=== PATIENT | male | born 2000 | race Caucasian/White ===

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

== ENCOUNTER → 2020-02-08 | Outpatient (CLI) | payer OTHER ==
[~2020-02-08] MED LIST changes: -OMEP40CA2 PO; +OMEP40CA97 PO
--- NOTE | 2020-03-01 15:37 | REP ---
RIGHT ANKLE SERIES CLINICAL: Pain with recent trauma. TECHNIQUE: AP, lateral, and bilateral oblique views of the right ankle. FINDINGS: Mild soft tissue swelling. No acute fracture or dislocation. No subcutaneous emphysema or foreign body. IMPRESSION: Swelling. No acute fracture or dislocation. MTDD
== END ==
LOC: M WUC 14:43
PROVIDERS: ATTEND Nurse Practitioner Family
DX: M25.571 Pain in right ankle and joints of right foot (principal)

== ENCOUNTER 2020-12-16 15:23 | Emergency (ER) | payer OTHER ==
[~2020-12-16] VITALS: Ht 182.9 cm; Wt 54.9 kg
[~2020-12-16 15:23] MED LIST changes: +OMEP40CA4 PO; -OMEP40CA97 PO
--- NOTE | 2020-12-16 19:26 | REP ---
INDICATION: chest pain. COMPARISON: Comparison chest x-ray October 19, 2017. TECHNIQUE: Two views.. FINDINGS: The lungs are well inflated and free of infiltrate. The pleural angles are sharp. The heart size is normal. Pulmonary vasculature is not increased. No significant bony abnormality is seen. IMPRESSION: Negative chest x-ray. <Electronically signed by Nigel Andrade > 12/16/201921
[2020-12-16 19:50] LABS: BASO % 0.5 % (0.0-1.0); EOS % 0.5 % (0.0-3.0); HEMATOCRIT 43.9 % (42.0-52.0); HEMOGLOBIN 14.7 g/dl (13.5-17.5); LYMPH # 1.6 10^3/uL (1.5-5.0); LYMPH % 23.9 % (24.0-44.0); MEAN CORPUSCULAR HEMOGLOBIN 27.6 pg (27.0-33.0); MEAN CORPUSCULAR HGB CONC 33.5 g/dl (32.0-36.5); MEAN CORPUSCULAR VOLUME 82.5 fl (80.0-96.0); MONO # 0.5 10^3/uL (0.0-0.8); MONO % 7.6 % (2.0-8.0); NEUTROPHILS # 4.4 10^3/uL (1.5-8.5); NEUTROPHILS % 67.2 % (36.0-66.0); PLATELET COUNT, AUTOMATED 235 10^3/uL (150-450); RED BLOOD COUNT 5.32 10^6/uL (4.30-6.10); WHITE BLOOD COUNT 6.5 10^3/uL (4.0-10.0)
[2020-12-16] MEDS ORDERED: ONDANSETRON 4MG/2ML VIAL IV ONE (20:05)
[2020-12-16] MEDS ORDERED: NS 1,000 ML IV ONE (20:05)
[2020-12-16 20:11] LABS: AMPHETAMINES LEVEL URINE NEGATIVE (NEGATIVE); BARBITURATES URINE NEGATIVE (NEGATIVE); BENZODIAZEPINES URINE NEGATIVE (NEGATIVE); CANNABINOIDS URINE NEGATIVE (NEGATIVE); COCAINE METABOLITE URINE NEGATIVE (NEGATIVE); METHADONE URINE NEGATIVE (NEGATIVE); OPIATES URINE NEGATIVE (NEGATIVE); PHENCYCLIDINE URINE NEGATIVE (NEGATIVE)
[2020-12-16 20:17] LABS: ALBUMIN 4.7 GM/DL (3.2-5.2); ALT/SGPT 22 U/L (12-78); BILIRUBIN,DIRECT 0.3 MG/DL (0.0-0.2); BILIRUBIN,TOTAL 1.2 MG/DL (0.2-1.0); CK-MB VALUE MASS < 1.0 NG/ML (<3.6); CPK CREATINE PHOSPHOKINASE 82 U/L (39-308); FREE T4 1.33 NG/DL (0.76-1.46); LIPASE 152 U/L (73-393); MB/CK RELATIVE INDEX 1.22 (< OR =4); THYROID STIMULATING HORMONE 0.743 uIU/ML (0.358-3.740); TOTAL PROTEIN 8.4 GM/DL (6.4-8.2); TROPONIN I < 0.02 NG/ML (< 0.10)
[2020-12-16] MEDS ORDERED: ONDA4TAB6 PO (21:12)
--- NOTE | 2020-12-16 21:42 | REPVR ---
PROCEDURE INFORMATION: Exam: US Abdomen, Limited; Right Upper Quadrant Exam date and time: 12/16/2020 8:35 PM Age: 20 years old Clinical indication: Abdominal pain; Generalized; Additional info: Upper abd pain, n/v/d TECHNIQUE: Imaging protocol: US abdomen. Real time ultrasound with image documentation. Limited exam focused on the right upper quadrant. COMPARISON: US ABDOMEN LIMITED 05/10/2017 11:02 AM FINDINGS: Liver: Normal. No masses. Gallbladder: There is no evidence of gallstones. Common bile duct: Common bile duct is normal in size measuring 4 mm. There is uniform echogenicity of the liver the gallbladder is fluid filled and there is no evidence thickening of the gallbladder wall. Pancreas: The pancreas is not enlarged. Right kidney: The right kidney measures 10 cm in length and there is no hydronephrosis. Negative Holland sign. IMPRESSION: No evidence of gallstones and no biliary dilatation. Electronically signed by: Gómez Dunbar On 12/16/2020 21:41:54 PM
[2020-12-16 22:12] VITALS: BP 114/63
--- NOTE | 2020-12-17 05:38 | ECGEPIP ---
[facility] - ED Test Date: 2020-12-16 Pat Name: OFELIA MONTENEGRO Department: Room: - Gender: Male Shank Taper: [place] : 2000 Requested By: KAUSHIK Coffey PA-C Order Number: [id number] Reading MD: Giorgio Og Measurements Intervals [place] Rate: 51 P: 55 CA: 150 QRS: 188 QRSD: 92 T: 55 QT: 416 QTc: 383 Interpretive Statements Sinus bradycardia Right superior axis deviation Low QRS complex voltage in the limb leads Comparison tracing not on file Electronically Signed on 12-17-2020 5:38:16 EDT by Giorgio Og
== END 2020-12-16 22:12 | disposition home or self-care (01) ==
LOC: M ED 15:23
DX: R10.10 Upper abdominal pain, unspecified (principal); R07.89 Other chest pain; R01.1 Cardiac murmur, unspecified; R11.2 Nausea with vomiting, unspecified; R19.7 Diarrhea, unspecified; R00.1 Bradycardia, unspecified; Q53.9 Undescended testicle, unspecified; F17.220 Nicotine dependence, chewing tobacco, uncomplicated; Z88.8 Allergy status to other drugs, medicaments and biological substances
CPT/HCPCS: 71046; 76705; 80047; 80076; 80307; 81001; 82550; 82553; 83690; 84439; 84443; 84484; 85025; 93005; 96361; 96374; 99284; J2405

== ENCOUNTER 2020-12-17 10:40 | Observation (INO) | payer OTHER ==
[~2020-12-17] VITALS: Ht 182.9 cm; Wt 54.5 kg
[2020-12-17] MEDS ORDERED: NS 1,000 ML IV ONE (13:00)
[2020-12-17] MEDS ORDERED: GI COCKTAIL 50ML BTL(HYOSCYAMINE/MAALOX/LIDOCAINE VISCOUS)(1:3:1) PO ONE (13:00)
[2020-12-17] MEDS ORDERED: ONDANSETRON 4MG/2ML VIAL IV ONE (13:00)
--- NOTE | 2020-12-17 13:13 | REP ---
INDICATION: Abdominal Pain. COMPARISON: Comparison chest x-ray December 16, 2020. TECHNIQUE: Three views including upright chest radiograph. FINDINGS: Upright chest radiograph is unremarkable. There is no evidence of infiltrate or free subdiaphragmatic air. Heart size is normal. Pulmonary vasculature is not increased. Pleural angles are sharp. Supine and erect views of the abdomen demonstrate a normal bowel gas pattern. The psoas margins and the flank stripes are intact. There is no evidence of mass, organomegaly, or pathologic calcification. IMPRESSION: Negative acute abdominal series. <Electronically signed by Nigel Andrade > 12/17/20 [id number]
[2020-12-17 13:42] LABS: BASO % 0.2 % (0.0-1.0); EOS % 0.4 % (0.0-3.0); HEMATOCRIT 45.5 % (42.0-52.0); HEMOGLOBIN 15.3 g/dl (13.5-17.5); LYMPH % 18.6 % (24.0-44.0); MEAN CORPUSCULAR HEMOGLOBIN 28.1 pg (27.0-33.0); MEAN CORPUSCULAR HGB CONC 33.6 g/dl (32.0-36.5); MEAN CORPUSCULAR VOLUME 83.6 fl (80.0-96.0); MONO # 0.4 10^3/uL (0.0-0.8); MONO % 6.4 % (2.0-8.0); NEUTROPHILS # 4.2 10^3/uL (1.5-8.5); PLATELET COUNT, AUTOMATED 213 10^3/uL (150-450); RED BLOOD COUNT 5.44 10^6/uL (4.30-6.10); WHITE BLOOD COUNT 5.6 10^3/uL (4.0-10.0)
[2020-12-17 14:14] LABS: ALBUMIN 4.6 GM/DL (3.2-5.2); ALT/SGPT 21 U/L (12-78); AMYLASE 41 U/L (25-115); BILIRUBIN,DIRECT 0.3 MG/DL (0.0-0.2); BILIRUBIN,TOTAL 1.2 MG/DL (0.2-1.0); CK-MB VALUE MASS < 1.0 NG/ML (<3.6); CPK CREATINE PHOSPHOKINASE 74 U/L (39-308); LIPASE 137 U/L (73-393); MB/CK RELATIVE INDEX 1.35 (< OR =4); TOTAL PROTEIN 8.2 GM/DL (6.4-8.2); TROPONIN I < 0.02 NG/ML (< 0.10)
[2020-12-17 15:39] LABS: C REACTIVE PROTEIN QUANTITATIV < 0.30 MG/DL (0.00-0.30)
[2020-12-17 16:08] LABS: ERYTHROCYTE SEDIMENTATION RATE 3 mm/hr (0-15)
[2020-12-17] MEDS ORDERED: ISOVUE-370 76% 100ML VIAL As Ordered ONE (16:39)
--- NOTE | 2020-12-17 17:39 | REP ---
INDICATION: epigastric abd pain/ttp, 10 lbs wt loss. COMPARISON: Noncontrast CT 04/27/2014. TECHNIQUE: Bolus 100 mL Isovue 3 7 as scanning through the abdomen and pelvis. FINDINGS: Abdominal CT: The lung bases are clear. Heart not enlarged. There is no pericardial thickening or effusion. I see no hiatal hernia. Liver is homogeneous without focal hepatic mass. Normal patchy opacification of the spleen from arterial phase imaging is noted. No mass, ascites or evidence of intrahepatic biliary dilatation. Gallbladder without stones calcified stone. The pancreas shows no mass, ductal dilatation, peripancreatic inflammatory change, adenopathy or fluid collection. Adrenal glands are normal. The kidneys show symmetric enhancement without stone, mass, cyst or hydronephrosis. Abdominal portions of the colon without dilatation or adjacent inflammatory change. Small bowel loops proximally without dilatation or inflammatory change. No intra-abdominal, mesenteric or retroperitoneal lymphadenopathy visible. Lung window review of all CT slices shows no perforation or free air. The bone windows show lumbar and lower thoracic spine and their posterior elements along with visualized ribs all intact. CT pelvis: The sacrum, pelvis and hips are without fracture or focal bone lesion. There is no ventral or inguinal hernia nor inguinal adenopathy. Bladder is well filled. There is no hydroureter ureteral or bladder stone identified. Small bowel loops fluid-filled but not abnormally dilated. Trace amount of pelvic free fluid evident. This is more on the right side than elsewhere. I cannot confirm a definitely visualized or abnormal appendix but multiple fluid-filled small bowel loops are seen adjacent to the cecum in this along with paucity of adjacent fat limits evaluation. No air bubbles or abnormal fluid collections that would suggest abscess. IMPRESSION: Impression: 1. Small bowel loops fluid-filled in the pelvis without abnormal dilatation. Multiple fluid-filled small bowel loops and paucity of fat around the cecum limit evaluation. No gross evidence of abnormal appendix, abnormal fluid collection, free air or appendicoliths. Trace free fluid deep pelvis on the right please correlate clinically. 2. Upper abdomen unremarkable no calcified gallstone, renal, ureteral or bladder stone, abdominal or pelvic adenopathy, free air or focal bone lesion. 3. Adrenal glands, pancreas liver, spleen and stomach grossly unremarkable. No hiatal hernia. <Electronically signed by Mg Lake > 12/17/20 [id number]
--- NOTE | 2020-12-17 18:29 | REPVR ---
PROCEDURE INFORMATION: Exam: CTA Chest With Contrast Exam date and time: 12/17/2020 4:49 PM Age: 20 years old Clinical indication: Other: Epigastric pain, new murmur TECHNIQUE: Imaging protocol: Computed tomographic angiography of the chest with contrast. 3D rendering (Not supervised by radiologist): MIP and/or 3D reconstructed images were created by the technologist. Radiation optimization: All CT scans at this facility use at least one of these dose optimization techniques: automated exposure control; mA and/or kV adjustment per patient size (includes targeted exams where dose is matched to clinical indication); or iterative reconstruction. Contrast material: ISOVUE 370; Contrast volume: 75 ml; Contrast route: INTRAVENOUS (IV); COMPARISON: CR Abdomen,Flat Upright,PA CHEST 12/17/2020 12:52 PM FINDINGS: Pulmonary arteries: Normal. No pulmonary emboli. Aorta: Unremarkable. No aortic aneurysm. No aortic dissection. Great vessels off aortic arch: Subcutaneous emphysema noted in the soft tissues of the middle mediastinum extending into the neck anterior to the trachea and surrounding the right common carotid and internal jugular vessels. Lungs: Unremarkable. No consolidation. No masses. Pleural spaces: Unremarkable. No pneumothorax. No pleural effusion. Heart: Unremarkable. No cardiomegaly. No pericardial effusion. Lymph nodes: Unremarkable. No enlarged lymph nodes. Bones/joints: Unremarkable. No acute fracture. Soft tissues: Unremarkable. IMPRESSION: 1. Subcutaneous emphysema in the neck contiguous with a pneumomediastinum Electronically signed by: Sheila Foster On 12/17/2020 18:29:07 PM
--- NOTE | 2020-12-17 19:35 | ECHO ---
ECHOCARDIOGRAM DATE OF PROCEDURE: 12/17/2020 Age: 20 Gender: Male Height: 183 cm Weight: 55 kg REFERRING PHYSICIAN: Moni Bowling INDICATION: Heart murmur MEASUREMENTS: IVS 0.8 cm LV 4.3 cm LVPW 0.9 cm LA 2.6 cm Aorta 3.1 cm Left atrium volume index 17 mL/m2 Mitral E wave velocity 100 A wave 33 E prime septal 12.3 E prime lateral 17.7 FINDINGS: The study is of acceptable technical quality. Patient is in sinus rhythm. Left ventricle is normal size and systolic function. The estimated ejection fraction (EF) is 60-65%. Right ventricle is also normal size and systolic function. Both atria appear normal. All four valves were reasonably well seen and appear normal. No pericardial effusion is noted. Inferior vena cava was poorly visualized, but grossly appears normal. Aortic root, aortic arch and abdominal aorta all appear normal. Doppler interrogation reveals competent aortic valve. There is trace mitral, tricuspid and pulmonic insufficiency. Calculated pulmonary artery pressure was approximately 20 mmHg, corresponding to normal values. Mitral inflow pattern and tissue Doppler imaging of mitral annulus revealed normal diastolic function. CONCLUSIONS: 1. Study is of acceptable technical quality. Underlying sinus rhythm. 2. Normal left ventricular (LV) size with preserved LV systolic and diastolic function. 3. Trace mitral, tricuspid and pulmonic insufficiency. 4. Normal central venous pressure. Normal pulmonary artery pressure. 5. Essentially normal echocardiogram.
[2020-12-17] MEDS ORDERED: PROMETHAZINE INJ 25 MG/ML VIAL (J2550) IV ONE (19:50)
[2020-12-17] MEDS ORDERED: MOM 30ML SUSPENSION UDC PO PRN (21:05)
[2020-12-17] MEDS ORDERED: ACETAMINOPHEN TAB 650MG DOSE (2X325MG) PO PRN (21:05)
[2020-12-17] MEDS ORDERED: traMADol 50 MG TAB PO PRN (21:05)
[2020-12-17] MEDS ORDERED: MAALOX 30 ML SUSP *UDC PO PRN (21:05)
[2020-12-17] MEDS ORDERED: NS 1,000 ML IV SCH (21:05)
--- NOTE | 2020-12-17 21:33 | HPEPDOC ---
[facility] Medical History & Physical Date of Admission Dec 17, 2020 Date of Service: Dec 17, 2020 Primary Care Physician: Aysha Attending Physician: DHARA EVERETT MD History and Physical CHIEF COMPLAINT: Epigastric and lower chest pain HISTORY OF PRESENT ILLNESS: Mr. Sibley is a 20-year-old male who presented to the ER for the second time in 24 hours with complaints of epigastric and left lower chest pain. He was here last night and had a workup and was sent home. He complains that he began with nausea and vomiting on Sunday morning. He says he had pizza for dinner on Sunday night and got up Sunday and tried to have one piece of cold pizza, but knew he could not hold down. He continued to remain nauseous throughout the day on Sunday and , but from Sunday morning on, had only dry heaves. He denied any fever or chills. Denied any diarrhea. He complained that his chest started hurting at the same time he started feeling sick. He went to work on Sunday and Sunday and says that he does lift heavy items at work. He did not remember any unusual activity, pain with his usual work duties, trauma to his chest or any incident out of his norm. He has a history of gastroesophageal reflux disease and has had an EGD in the past for evaluation of this. He was started on on the prednisone about 4 years ago, but states he could not tolerate it. He said that he would throw up any time he took the medication, he said that this happened, whether he took it with food, on an empty stomach and at different times of the day. He told his physician about this reaction but they never placed him on any other medication. He says that reflux has not really bothered him since other than an occasional mild flare that would resolve quickly on its own. The patient denies any history of asthma or other breathing difficulties. On initial evaluation, the patient was noted to be satting 100% on room air. He was afebrile. Pulse was running in the mid to upper 50s with blood pressure 122/74. Labs were unremarkable except for a mild elevation of bilirubin at 1.2 with direct bili 0.3. Abdominal x-ray was negative for acute pathology. CT of the abdomen and pelvis was negative for any abnormal dilation in the small bowel. Appendix was normal. There is trace free fluid in the deep pelvis but the upper abdomen was unremarkable. No hiatal hernia was noted. CT of the chest was remarkable for subcutaneous emphysema in the neck contiguous with a pneumomediastinum. The ER provider spoke with Dr. Dow, general surgery and with Dr. Mckeon, cardiothoracic surgery. It was recommended that the patient be tested for HIV, admitted for close observation, pain control and antiemetics. PAST MEDICAL HISTORY: 1. Gastroesophageal reflux disease PAST SURGICAL HISTORY: 1. Surgery for non-descended testicle. 2. EGD SOCIAL HISTORY: Tobacco use: Patient denies ETOH: Admits to occasional use Illicit drug use: Denies Patient lives with: By himself FAMILY HISTORY: Patient's mother is 47 years old with a history of breast cancer. His father is 47 and has leukemia. REVIEW OF SYSTEMS: Complete 10 point review systems is negative except as noted above PHYSICAL EXAMINATION: Patient is seen in the ER, lying on the stretcher.. He is alert and oriented x 3. HEENT is WNL. Neck is supple. . There is no obvious crepitus noticed. Lungs are clear to auscultation. No chest wall crepitus noted. Heart regular rate and rhythm without murmur. Abdomen is soft, tender to palpation and percussion at the epigastric and left upper quadrant with bowel sounds positive. No obvious herniation noted. Extremities with good ROM and strength equal bilaterally. No lower extremity edema. Pedal pulses are positive. Skin is warm and dry with no obvious rash or lesion. Neuro: grossly intact. Psych: He is pleasant and cooperative but is anxious about being admitted. ASSESSMENT AND PLAN: 1. Pneumomediastinum, etiology unclear. Will check VBG. HIV studies pending. Will continue the patient on IV Protonix. Continue on IV fluids. General surgery and cardiothoracic surgery are consulted. Continue when necessary pain medications and antiemetics. Will initiate clear liquid diet for now. 2. Gastroesophageal reflux disease. Protonix. 3. Nausea and vomiting with epigastric and lower chest pain. Plan as outlined above. 4. Anxiety. Patient's mother states he has a history of panic attacks. Continue supportive care. 5. DVT prophylaxis. Will add Lovenox. CODE STATUS: CODE STATUS was discussed with the patient desires to be considered full code. He states his mother would act as his surrogate if he were unable to make his decisions. Patient is considered high risk of further deterioration including worsening pneumomediastinum. He is admitted for close observation and further evaluation and expected to remain at least one midnight. Vital Signs Vital Signs Date Time Temp Pulse Resp B/P (MAP) Pulse Ox O2 Delivery O2 Flow Rate FiO2 12/17/20 20:17 97.4 56 18 125/82 (96) 100 Room Air Laboratory Data Labs 24H Laboratory Tests 2 12/17/20 13:20: Immature Granulocyte % (Auto) 0.4, Neutrophils (%) (Auto) 74.0H, Lymphocytes (%) (Auto) 18.6L, Monocytes (%) (Auto) 6.4, Eosinophils (%) (Auto) 0.4, Basophils (%) (Auto) 0.2, Neutrophils # (Auto) 4.2, Lymphocytes # (Auto) 1.0L, Monocytes # (Auto) 0.4, Eosinophils # (Auto) 0.0, Basophils # (Auto) 0.0, Nucleated Red Blood Cells % (auto) 0.0, Erythrocyte Sedimentation Rate 3, D-Dimer, Quantitati ve < 270.0, Total Bilirubin 1.2H, Direct Bilirubin 0.3H, Aspartate Amino Transf (AST/SGOT) 6L, Alanine Aminotransferase (ALT/SGPT) 21, Alkaline Phosphatase 91, Total Creatine Kinase 74, Creatine Kinase MB < 1.0, Creatine Kinase MB Relative Index 1.35, Troponin I < 0.02, C-Reactive Protein, Quantitative < 0.30, Total Protein 8.2, Albumin 4.6, Albumin/Globulin Ratio 1.3, Amylase Level 41, Lipase 137 12/17/20 13:40: POC Glucose (Misc Panel) 92, POC Sodium (Misc Panel) 141, POC Potassium (Misc Panel) 3.7, POC Chloride (Misc Panel) 104, POC Total CO2 (Misc Panel) 25.0, POC Blood Urea Nitrogen (Misc Panel 20, POC Ionized Calcium (Misc Panel) 5.0, POC Creatinine (Misc Panel) 1.0, POC Hematocrit (Misc Panel) 45.0 CBC/BMP Laboratory Tests 12/17/20 13:20 Microbiology Microbiology 12/17/20 Respiratory Virus Panel (PCR) ([facility]) - Final, Complete Home Medications No Active Prescriptions or Reported Meds Allergies Coded Allergies: famotidine (Verified Adverse Reaction, Mild, N/V, 12/16/20) omeprazole (Verified Adverse Reaction, Mild, N/V, 12/16/20) A-FIB/CHADSVASC A-FIB History Current/History of A-Fib/PAF?: No MINDY GONZALEZ Dec 17, 2020 21:33
[2020-12-17 21:52] LABS: HIV 1&2 SCREEN CENTAUR NEGATIVE (NEGATIVE)
[2020-12-17] MEDS: PANTOPRAZOLE 40MG VIAL (C9113 PER 1) IV SCH (22:54)
[2020-12-17 23:34] VITALS: BP 123/53
[2020-12-18] MEDS: ONDANSETRON 4MG/2ML VIAL IV PRN ×2 (02:04→22:46)
[2020-12-18 04:40] VITALS: BP 106/53
[2020-12-18 05:46] LABS: VENOUS BASE EXCESS -2.7 (-2.0-2.0); VENOUS HCO3 22.5 MEQ/L (23.0-27.0); VENOUS O2 SATURATION 98.6 % (60.0-80.0); VENOUS PARTIAL PRESSURE CO2 40.9 mmHg (38.0-50.0); VENOUS PARTIAL PRESSURE O2 130.9 mmHg (30.0-50.0); VENOUS PH 7.359 UNITS (7.330-7.430); VENOUS STANDARD HCO3 22.2 MEQ/L; VENOUS TOTAL CO2 23.8 MEQ/L (24.0-28.0)
[2020-12-18 05:51] LABS: HEMATOCRIT 40.2 % (42.0-52.0); HEMOGLOBIN 13.6 g/dl (13.5-17.5); MEAN CORPUSCULAR HGB CONC 33.8 g/dl (32.0-36.5); MEAN CORPUSCULAR VOLUME 82.7 fl (80.0-96.0); PLATELET COUNT, AUTOMATED 180 10^3/uL (150-450); RED BLOOD COUNT 4.86 10^6/uL (4.30-6.10); WHITE BLOOD COUNT 5.9 10^3/uL (4.0-10.0)
[2020-12-18 06:23] LABS: BLOOD UREA NITROGEN 15 MG/DL (7-18); CALCIUM LEVEL 8.7 MG/DL (8.5-10.1); CARBON DIOXIDE LEVEL 26 MEQ/L (21-32); CHLORIDE LEVEL 108 MEQ/L (98-107); CREATININE FOR GFR 0.86 MG/DL (0.70-1.30); GLOMERULAR FILTRATION RATE > 60.0 (>60); GLUCOSE, FASTING 80 MG/DL (70-100); MAGNESIUM LEVEL 2.1 MG/DL (1.8-2.4); POTASSIUM SERUM 3.8 MEQ/L (3.5-5.1); SODIUM LEVEL 139 MEQ/L (136-145)
[2020-12-18 08:00] VITALS: BP 130/59
[2020-12-18] MEDS: PANTOPRAZOLE 40MG VIAL (C9113 PER 1) IV SCH ×2 (08:51→20:13)
[2020-12-18] MEDS: ENOXAPARIN 40MG/0.4ML SYRINGE (J1650 PER 10MG) SC SCH ×2 (08:52→09:00)
[2020-12-18] MEDS: MORPHINE 4 MG/ML 1ML VIAL/SYRINGE (J2270) IV PRN ×2 (08:54→22:41)
[2020-12-18] MEDS: D5W 1,000 ML IV SCH ×3 (08:55→16:50)
--- NOTE | 2020-12-18 10:49 | ECGEPIP ---
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
[2020-12-18] MEDS: PIPERACILLIN/TAZOBACTAM SOD 3.375 GM in D5W MINI-BAG PLUS 50 ML IV SCH ×3 (11:44→22:42)
[2020-12-18 12:00] VITALS: BP 111/56
--- NOTE | 2020-12-18 13:03 | IPNPDOC ---
Text Note Date of Service The patient was seen on 12/18/20. NOTE Subjective: Patient continues to complain of epigastric abdominal pain, const ant, 7 out of 10. Patient reported that he did not have vomiting overnight. Objective: GENERAL APPEARANCE: NAD HEENT: no scleral icterus, no JVD, EOMI, some crepitus on palpation of the neck area CARDIOVASCULAR: S1S2 LUNGS: CTA ABDOMEN: Tenderness over epigastric area, no rigidity, no rebound MUSCULOSKELETAL: no cyanosis, no swelling INTEGUMENT: no generalized pallor NEUROLOGICAL: cranial nerve function from 2-12 intact intact, follows commands, speech not dysarthric Assessment and plan Patient is 20 years old male with past medical history of GERD, anxiety presented to the hospital with abdominal pain. Patient was found to have pneumomediastinum with subcutaneous emphysema. Pneumomediastinum/subcutaneous emphysema There is concern for Boerhaave syndrome given history of multiple episodes of vomiting and CT presentation of subcutaneous emphysema in the neck contiguous w ith a pneumomediastinum I discussed the case by phone with GI team Dr. Lassiter. He recommended n .p.o. and start antibiotics Appreciate/agree with thoracic surgeon consult Zosyn IV Strict n.p.o., continue IV fluid PPI IV Continue pain management Nausea/vomiting Zofran IV GERD PPI IV VS,Fishbone, I+O VS, Fishbone, I+O Laboratory Tests 12/17/20 13:20 12/18/20 05:32 Vital Signs Date Time Temp Pulse Resp B/P (MAP) Pulse Ox O2 Delivery O2 Flow Rate FiO2 12/18/20 12:00 97.8 56 18 111/56 (74) 100 Nasal Cannula 2.0 I&O- Last 24 Hours up to 6 AM 12/18/20 06:00 Intake Total 50 ml Balance 50 ml FLAQUITA RILEY DO Dec 18, 2020 13:03
[2020-12-18 16:00] VITALS: BP 116/60
--- NOTE | 2020-12-18 16:59 | CR ---
CONSULTATION DATE: 12/18/2020 BRIEF HISTORY OF PRESENT ILLNESS: The patient is a 20-year-old male who presents with almost a three day history of epigastric pain, lower abdominal pain, nausea, vomiting that developed over the last several days, came into the hospital on night and then again on Sunday, was persistent/progressive chest pain radiating to his back. He does have a history of reflux symptoms and there is a question of medications that he was treated for in the past and whether it is Prilosec or prednisone but it sounds as though most likely it was Prilosec although obviously if it was prednisone it may have been eosinophilic esophagitis as a possibility. In any case at this point, he presents for additional recommendations concerning some pneumomediastinum the occurred in the cervical esophagus area/upper chest area. PAST MEDICAL HISTORY: Significant for a history of surgery for undescended testis, history of EGD and gastroesophageal reflux disease. PHYSICAL EXAMINATION: GENERAL APPEARANCE: A 20-year-old who looks stated age. HEENT: Unremarkable. LUNGS: Clear anteriorly. HEART: Regular. ABDOMEN: Soft, nondistended. He has some tenderness along the ribs on the left chest wall as well as some mild tenderness in epigastric area without significant guarding or rebound. LABORATORY DATA: His white count is normal and as I stated previously, he had some pneumomediastinum but it starts about at the altagracia and goes up. There may be a couple small air bubbles just below the altagracia but overall this seems to be going up. IMPRESSION AND PLAN: The patient has pneumoperitoneum. Obviously the etiology is either GI or lung/respiratory etiology. With his nausea and vomiting, it is more likely that it is an upper esophageal etiology although reportedly, Dr. Mckeon has seen the patient and the patient's family had described possible pulmonary bleb as an etiology for this abnormality. In any case, the patient's been not tachycardic. He has not been hypotensive and over the last six hours, his chest/abdominal pain has substantially improved, significantly resolving. From a surgical standpoint if this is an upper esophageal tear given his improvement, I do not intervention is significantly needed. From a surgical standpoint, obviously for a diagnostic standpoint, options include a Gastrografin, Renografin swallow or an upper endoscopy. Otherwise, follow up CT scan in 24-48 hours is not unreasonable as well but in any case given his stability, I would recommend that he stay NPO for right now, IV fluids for his current situation and supportive care. If this was a pneumomediastinum associated with a pleural bleb, fortunately infectious complications are extremely unusual and given its location, this should resolve relatively quickly and complications associated with pneumomediastinum with a pleural etiology given its less likely infectious etiology is a little bit easier to treat and the morbidities should be less as well. In any case, I do feel that after he has been NPO and his chest and abdominal pain has resolved for 24 to 48 hours, we could consider performing a swallow study too make sure that there is no evidence of tear rip and if he tolerates that, then just put him on clear liquid diet. From a pain standpoint in the chest wall as well as in the epigastric area, I feel that these are mostly musculoskeletal issues at this time. The third issue is that he does have this abnormality with some weight loss, he feels over the last possible month and some nausea, vomiting issues. Given this history, I would suggest that he have further GI workup/medical workup after discharge once he resolves this current issue.
--- NOTE | 2020-12-18 17:07 | CR.PDOC ---
General Date of Consultation: Dec 18, 2020 Referring Provider: FLAQUITA JACKSON DO Attending Physician: KONG MOSQUERA MD Consultation Referring physician / PCP : Dr. Jackson Reason for consult: Abnormal CT scan. HPI: Patient is 20 year old Male with PMH of GERD S/P EGD in 12/19/[address] Fajardo (reported as normal) presenting to ED h/o of 24hrs of chest pain and epigastric pain. presented to ED second time with persistent chest pain and abdominal pain had CT of the chest GI was consulted for abnormal CT finding. Patient reports his symptoms started few days ago with acute onset of nausea and vomiting with out any precipitating event, reports dry heaving and vomiting of clear liquids unable to tolerate any oral diet with epigastric and substernal chest pain, also had couple of loose stools. Patient does reports dizziness prior to hospitalization and reports all his symptoms resolved except mild epigastric abdominal pain Pertinent negative GI symptoms: Patient denies .shortness of breath,loss of appetite, early satiety or unintentional weight loss, hematemesis, melena or hematochezia. Patient reports regular bowel movements. And is able to pass gas. Review of Systems: GI: as stated above CVS: No palpitations, No leg swelling RS: No Shortness of breath, No Wheezing INTEGRATION SOLUTION ARCHITECT: No loss of consciousness, No focal motor weakness., Hematology: No easy bruising, No gum bleeding, Musculoskeletal: No joint pain, ambulating well. : No blood in urine, No burning sensation of the urine ENT: No ear discharge/ pain, No dysphagia. Eyes: No photophobia. Skin: No rash Home medications: reviewed. No Plavix and No anticoagulants Medical h/o: GERD Surgical h/o: S/P EGD in 2018- reported Normal Social h/o: Occasionally alcohol use, denies smoking, IVDA/ drugs. Family h/o of GI cancers - None, patient has a sister and no congenital disorder in family Prior Endoscopies: one in [facility]. --- EGD [address] Fajardo --- Colonoscopy no Prior GI evaluation: None in [facility] Exam: Vitals: reviewed General: Alert and oriented x 3, not in acute distress., tall and thin built. HEENT: No pallor, no icterus. Normal oropharynx, NO cervical lymphadenopathy. Chest: symmetric with bilateral air entry, CVS: S1, S2 heard, Abdomen: non-distended, soft, non-tender, no rigidity or guarding, no palpable masses, normal bowel sounds heard. Rectal exam: Patient refused / Deferred at this time in view of scheduled colonoscopy. Extremities: pulses palpable, no pedal edema, INTEGRATION SOLUTION ARCHITECT: no focal motor or sensory deficits. Moves all extremities Skin: no rash. Labs: reviewed. HCV screening indicated ordered / done OR Not indicated due to age. Imaging: CTA done on 12/17/2020: IMPRESSION: 1. 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 DDX-- acute gastroenteritis vs costochondritis. Patient is already seen by surgery. Recommendations: -- Patient educated about the prior test results and all questions answered. -- Follow with surgery recommendations. -- Conservative management with close monitoring of vitals. -- Advance diet as recommended by surgery. -- Consider oesophagagarm with Gastrografin contrast without barium for further evaluation. -- Depending on the clinical course discuss with CT surgery for further management. -- Recall GI if any change in status. -- Plan of care educated to patient and patient verbalized understanding and agreed. All questions answered. -- Recommendations communicated to primary team. Patient to follow with PCP upon discharge for routine medical care. Vital Signs/I&O Vital Signs Date Time Temp Pulse Resp B/P (MAP) Pulse Ox O2 Delivery O2 Flow Rate FiO2 12/18/20 16:00 97.8 68 18 116/60 (78) 100 Nasal Cannula 2.0 I&O- Last 24 Hours up to 6 AM 12/18/20 06:00 Intake Total 50 ml Balance 50 ml Laboratory Data Labs 24H Laboratory Tests 2 12/18/20 05:32: Nucleated Red Blood Cells % (auto) 0.0, Blood Gas Bicarbonate Standard 22.2, Venous Blood pH 7.359, Venous Blood Partial Pressure CO2 40.9, Venous Blood Partial Pressure O2 130.9H, Venous Blood Total Carbon Dioxide 23.8L, Venous Blood HCO3 22.5L, Venous Blood Oxygen Saturation 98.6H, Venous Blood Base Excess -2.7L, Anion Gap 5L, Glomerular Filtration Rate > 60.0, Calcium Level 8.7, Magnesium Level 2.1 CBC/BMP Laboratory Tests 12/18/20 05:32 Microbiology Microbiology 12/17/20 Respiratory Virus Panel (PCR) ([facility]) - Final, Complete Allergies Coded Allergies: famotidine (Verified Adverse Reaction, Mild, N/V, 12/16/20) omeprazole (Verified Adverse Reaction, Mild, N/V, 12/16/20) Home Medications No Active Prescriptions or Reported Meds KONG MOSQUERA MD Dec 18, 2020 17:07
--- NOTE | 2020-12-18 17:29 | REP ---
INDICATION: mediastinal emphysema f/u. COMPARISON: CT 12/17/2020, PA 12/17/2020, PA LATERAL 12/16/2020 TECHNIQUE: PA LATERAL FINDINGS: THERE IS VERY GENTLE LEVOROTATORY CURVE MID LOWER THORACIC SPINE BEFORE. THE LUNGS ARE WELL INFLATED. THE CP ANGLES ARE SHARPLY DEFINED. NO PLEURAL EFFUSION OR PNEUMOTHORAX. HEART IS NOT ENLARGED THERE IS NO MEDIASTINAL OR HILAR MASS. I CANNOT CONFIRM ANY PNEUMOMEDIASTINUM. IN FACT, THE SUBTLE PNEUMOMEDIASTINUM ON CT YESTERDAY COULD NOT BE SEEN ON EXCELLENT PORTABLE CHEST YESTERDAY OR PA CHEST AND LATERAL 2 DAYS AGO. THE AORTA IS NORMAL. AIRWAY INTACT. THERE IS NO SUBCUTANEOUS EMPHYSEMA IN THE NECK OR SUPERIOR CHEST. RIBS INTACT. CLAVICLES, SCAPULA AND HUMERAL HEADS UNREMARKABLE. BONES SHOW NO COMPRESSION DEFORMITY ON LATERAL VIEW OF THE THORACIC SPINE. IMPRESSION: 1. STABLE EXAMINATION. THERE IS NO PLAIN FILM EVIDENCE OF PNEUMOMEDIASTINUM. THAT SUBTLE CT FINDING COULD NOT BE SEEN ON CHEST X-RAY YESTERDAY OR 2 DAYS AGO AND IS NOT VISIBLE TODAY. NO PNEUMOTHORAX, INFILTRATE OR OTHER ACUTE FINDING. <Electronically signed by Mg Lake > 12/18/20 [id number]
[2020-12-18 20:00] VITALS: BP 123/69
[2020-12-19] VITALS: BP 96/50
[2020-12-19 04:00] VITALS: BP 103/58
[2020-12-19] MEDS: D5W 1,000 ML IV SCH ×3 (04:37→18:12)
[2020-12-19] MEDS: PIPERACILLIN/TAZOBACTAM SOD 3.375 GM in D5W MINI-BAG PLUS 50 ML IV SCH ×4 (04:37→23:16)
[2020-12-19 05:49] LABS: BASO % 0.4 % (0.0-1.0); EOS # 0.1 10^3/uL (0.0-0.5); EOS % 1.5 % (0.0-3.0); HEMATOCRIT 39.6 % (42.0-52.0); HEMOGLOBIN 13.5 g/dl (13.5-17.5); LYMPH # 1.7 10^3/uL (1.5-5.0); LYMPH % 32.9 % (24.0-44.0); MEAN CORPUSCULAR HGB CONC 34.1 g/dl (32.0-36.5); MONO # 0.5 10^3/uL (0.0-0.8); MONO % 9.9 % (2.0-8.0); NEUTROPHILS # 2.9 10^3/uL (1.5-8.5); NEUTROPHILS % 54.9 % (36.0-66.0); PLATELET COUNT, AUTOMATED 193 10^3/uL (150-450); RED BLOOD COUNT 4.83 10^6/uL (4.30-6.10); WHITE BLOOD COUNT 5.3 10^3/uL (4.0-10.0)
[2020-12-19 06:24] LABS: ALBUMIN 3.6 GM/DL (3.2-5.2); ALT/SGPT 17 U/L (12-78); BILIRUBIN,TOTAL 1.1 MG/DL (0.2-1.0); BLOOD UREA NITROGEN 8 MG/DL (7-18); CALCIUM LEVEL 8.6 MG/DL (8.5-10.1); CARBON DIOXIDE LEVEL 28 MEQ/L (21-32); CHLORIDE LEVEL 105 MEQ/L (98-107); GLOMERULAR FILTRATION RATE > 60.0 (>60); GLUCOSE, FASTING 87 MG/DL (70-100); MAGNESIUM LEVEL 2.1 MG/DL (1.8-2.4); POTASSIUM SERUM 3.3 MEQ/L (3.5-5.1); SODIUM LEVEL 139 MEQ/L (136-145); TOTAL PROTEIN 6.5 GM/DL (6.4-8.2)
[2020-12-19 08:00] VITALS: BP 100/51
[2020-12-19] MEDS: ONDANSETRON 4MG/2ML VIAL IV PRN (08:24)
[2020-12-19] MEDS: PANTOPRAZOLE 40MG VIAL (C9113 PER 1) IV SCH ×2 (08:25→21:09)
[2020-12-19] MEDS: MORPHINE 4 MG/ML 1ML VIAL/SYRINGE (J2270) IV PRN (08:25)
[2020-12-19] MEDS: ENOXAPARIN 40MG/0.4ML SYRINGE (J1650 PER 10MG) SC SCH (08:40)
--- NOTE | 2020-12-19 11:03 | IPNPDOC ---
Text Note Date of Service The patient was seen on 12/19/20. NOTE Subjective: Patient continues to complain of epigastric abdominal pain, const ant, 5 out of 10. No nausea or vomiting Objective: GENERAL APPEARANCE: NAD HEENT: no scleral icterus, no JVD, EOMI, no crepitus on palpation of the neck area CARDIOVASCULAR: S1S2 LUNGS: CTA ABDOMEN: Tenderness over epigastric area, no rigidity, no rebound MUSCULOSKELETAL: no cyanosis, no swelling INTEGUMENT: no generalized pallor NEUROLOGICAL: cranial nerve function from 2-12 intact intact, follows commands, speech not dysarthric Assessment and plan Patient is 20 years old male with past medical history of GERD, anxiety presented to the hospital with abdominal pain. Patient was found to have pneumomediastinum with subcutaneous emphysema. Pneumomediastinum/subcutaneous emphysema There is concern for Boerhaave syndrome, especially microperforation given history of multiple episodes of vomiting and CT presentation of subcutaneous emphysema in the neck contiguous with a pneumomediastinum Dr. Lassiter recommended oesophagogram with Gastrografin contrast without barium for further evaluation Await thoracic surgeon consult Zosyn IV Strict n.p.o., continue IV fluid PPI IV Continue pain management Nausea/vomiting Zofran IV GERD PPI IV VS,Fishbone, I+O VS, Fishbone, I+O Laboratory Tests 12/19/20 05:08 Vital Signs Date Time Temp Pulse Resp B/P (MAP) Pulse Ox O2 Delivery O2 Flow Rate FiO2 12/19/20 08:40 16 12/19/20 08:00 97.6 52 100/51 (67) 99 Room Air 12/19/20 00:00 2.0 I&O- Last 24 Hours up to 6 AM 12/19/20 06:00 Intake Total 1550 ml Output Total 500 ml Balance 1050 ml FLAQUITA RILEY DO Dec 19, 2020 11:03
[2020-12-19 12:00] VITALS: BP 104/58
--- NOTE | 2020-12-19 14:44 | IPN ---
PROGRESS NOTE DATE: 12/19/2020 SUBJECTIVE: The patient has been afebrile. I.'s and O.'s have been good. He has not been tachycardic and his urine output has been good. No evidence of sepsis. He still complains of pain and discussed in the left rib area and in the epigastric area but overall no other significant complaints at this time. The patient is hungry and would like to go home. He still has some mild tenderness in the epigastric area and along the ribs on the left chest wall. IMPRESSION AND PLAN: The patient has probably musculoskeletal discomfort or it could be referred pain to this area but given his history, I do feel that giving another 24 hours of n.p.o. is reasonable and then performing a barium swallow/Gastrografin swallow tomorrow is reasonable and if this shows no evidence of leakage, starting him on a clear liquid diet is okay and if he tolerates that, he could be discharged home on a clear liquid diet and follow up as an outpatient. However, I would recommend that he probably be evaluated as an outpatient from a GI standpoint, given his weight loss and nausea, vomiting issues that have occurred over the last month.
[2020-12-19 20:00] VITALS: BP 103/56
[2020-12-20] VITALS: BP 113/64
[2020-12-20] MEDS: MORPHINE 4 MG/ML 1ML VIAL/SYRINGE (J2270) IV PRN (00:10)
[2020-12-20] MEDS: D5W 1,000 ML IV SCH (02:31)
[2020-12-20 04:00] VITALS: BP 90/46
[2020-12-20] MEDS: PIPERACILLIN/TAZOBACTAM SOD 3.375 GM in D5W MINI-BAG PLUS 50 ML IV SCH ×2 (04:32→12:01)
[2020-12-20 05:29] LABS: BASO % 0.5 % (0.0-1.0); EOS # 0.1 10^3/uL (0.0-0.5); EOS % 1.7 % (0.0-3.0); HEMATOCRIT 41.8 % (42.0-52.0); HEMOGLOBIN 14.1 g/dl (13.5-17.5); LYMPH # 2.1 10^3/uL (1.5-5.0); MEAN CORPUSCULAR HEMOGLOBIN 27.6 pg (27.0-33.0); MEAN CORPUSCULAR HGB CONC 33.7 g/dl (32.0-36.5); MONO # 0.5 10^3/uL (0.0-0.8); MONO % 8.2 % (2.0-8.0); NEUTROPHILS # 3.6 10^3/uL (1.5-8.5); NEUTROPHILS % 56.4 % (36.0-66.0); PLATELET COUNT, AUTOMATED 192 10^3/uL (150-450); WHITE BLOOD COUNT 6.3 10^3/uL (4.0-10.0)
[2020-12-20 05:56] LABS: ALBUMIN 3.9 GM/DL (3.2-5.2); ALT/SGPT 14 U/L (12-78); BILIRUBIN,TOTAL 1.1 MG/DL (0.2-1.0); BLOOD UREA NITROGEN 6 MG/DL (7-18); CARBON DIOXIDE LEVEL 31 MEQ/L (21-32); CHLORIDE LEVEL 105 MEQ/L (98-107); CREATININE FOR GFR 1.17 MG/DL (0.70-1.30); GLOMERULAR FILTRATION RATE > 60.0 (>60); GLUCOSE, FASTING 101 MG/DL (70-100); MAGNESIUM LEVEL 2.2 MG/DL (1.8-2.4); POTASSIUM SERUM 3.4 MEQ/L (3.5-5.1); SODIUM LEVEL 140 MEQ/L (136-145)
[2020-12-20 08:00] VITALS: BP 96/52
[2020-12-20] MEDS: ENOXAPARIN 40MG/0.4ML SYRINGE (J1650 PER 10MG) SC SCH (08:22)
[2020-12-20] MEDS: PANTOPRAZOLE 40MG VIAL (C9113 PER 1) IV SCH (08:22)
[2020-12-20] MEDS ORDERED: GASTROGRAFIN SOLUTION 30ML (Q9963) As Ordered ONE (09:21)
--- NOTE | 2020-12-20 10:13 | CR ---
CONSULTATION DATE: 12/18/2020 REASON FOR CONSULTATION: Patient is seen at the request of the Hospitalist service for mediastinal emphysema and epigastric pain. HISTORY OF PRESENT ILLNESS: The patient is a 20-year-old white male whose story starts about a week and a half ago when he started to develop diarrhea which then progressed to epigastric pain. He denies fevers, chills or sweats. There has been no cough, no sputum production. There is no chest pain per se and certainly no lateral chest pain. There is no difficulty swallowing. There is no dysphagia. There is no shortness of breath. He does recall eating fresh strawberries about two weeks ago and has also been to a barbecue. There has been no exposure to fresh water ponds. He only had a past remote travel history to [place]. A chest CT was undertaken followed by an abdominal CT. He was found to have mediastinal emphysema in and around his trachea. Because of his nausea and vomiting, there was a fleeting concern for Boerhaave's which he clearly does not have. The patient has noted that he has lost weight over the past week of approximately 8 pounds. He also noticed that his belt has become looser. He has not been eating well over the past few days. PAST MEDICAL HISTORY: 1. Gastroesophageal reflux disease. PAST SURGICAL HISTORY: 1. Reduction of an undescended testicle. HABITS: Does not smoke. Does not drink but does chew tobacco, about a can a day. No illicit drugs. TRAVEL HISTORY: [place]. There has been no foreign travel. EXPOSURES: He has one dog, a Labrador coon mix. No cats or birds. 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 FAMILY HISTORY: Mother has breast cancer. Father has leukemia. MEDICATIONS AT HOME: None. ALLERGIES: Famotidine and omeprazole. REVIEW OF SYSTEMS: Constitutional: Without fevers, chills, sweats or night sweats. Eyes without diplopia. Wears contacts. Without amaurosis fugax, without prior jaundice. Nose: Without epistaxis. Mouth: Has his own teeth. Respiratory: See HPI. Cardiac: Without palpitations or tachycardia. Without orthopnea, paroxysmal nocturnal dyspnea or peripheral edema. GI: See HPI. : Without dysuria or hematuria. History of renal stones. Endocrine: Without diabetes and without thyroid disease. Neurologic: Without paresthesias, paralyses or prior seizures. Psychiatric: Without pathological anxiety, depression or psychoses. PHYSICAL EXAMINATION: GENERAL: Well-developed, underweight white male. VITAL SIGNS: Temperature is 97.8, heart rate is 56 and sinus rhythm, respiratory rate is 18 without the use of accessory muscles. He is 100% saturated on 2 liters of nasal cannula. His blood pressure is 111/56. HEENT: Eyes: Pupils equal, round and reactive to light. Extraocular muscles are intact. Sclera is nonicteric. Head is normocephalic. Nose without deformity. Mouth shows the mucous membranes to be pink and moist. Lips and commissures without lesions or thrush. Teeth are in good repair. NECK: Supple. There is no jugular venous distention. No subcutaneous emphysema. Trachea is midline. There is no lymphadenopathy or thyromegaly. He has 2+ carotid upstrokes. No bruits. LUNGS: Equal breath sounds on either side without wheezes, rhonchi or rales. Percussion is full to the diaphragm. CARDIAC: An occasional squeak which is not consistent throughout the cardiac [place]. I cannot feel his PMI. S1 and S2 are normal. There are no murmurs, clicks, gallops or rubs. ABDOMEN: Tender in the epigastrium and the right upper quadrant but soft and without guarding or rigidity. The right lower quadrant is pain free. Bowel sounds are positive. There is no CVA tenderness. EXTREMITIES: No pretibial edema. No calf tenderness. No differential swelling of the upper extremities. SKIN: Warm, dry and well-perfused without cyanosis or mottling including that of nailbeds and knees. NECK: Supple. There is no jugular venous distention. No subcutaneous emphysema. Trachea is midline. Mouth shows his mucous membranes to be pink and moist. Lips and commissures without lesions or thrush. Eyes shows pupils equal and reactive. Extraocular muscles intact. Sclera nonicteric. NEUROLOGIC: Cranial nerves I-XII intact. Gait is not tested. PSYCHIATRIC: Awake, alert and oriented x3 with appropriate mood and affect, and non-conversational. LABORATORY DATA: His white count is 5.9 with a hemoglobin and hematocrit of 13.6 and 40.2 respectively. Platelet count is 180,000. There is no differential today with differential yesterday showing 74% neutrophils, 18% lymphocytes and 6% monocytes. There were no immature forms or toxic granulations. His electrolytes are essentially normal today with a BUN and creatinine of 15 and 0.86, a glucose of 80 and of calcium of 8.7 with a corresponding albumin of 4.6. Total bilirubin is 1.2 with an AST and ALT of 6/21 respectively. Blood gases this morning shows a pH of 7.35, pCO2 of 40, pO2 of 130 on 2 liters of nasal cannula with a base excess of -2.7. This is labeled as a venous gas. His chest x-ray is pending today. His CT angio yesterday did not show a pulmonary embolism. There is mediastinal emphysema paratracheally near the altagracia. I do not see a pneumopericardium. There is no pericardial effusion. There are no pleural effusions. Lung parenchyma is without masses. I do not see emphysematous changes within the parenchyma. His adrenals are intact with normal configuration. Abdominal CT at least to my interpretation shows suspicious possible mass in the right lower quadrant. Radiology did not call this, but may very well be fluid filled loops of small bowel. IMPRESSION: 1. 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 2. No evidence of Boerhaave's. 3. Probable gastroenteritis. 4. Dehydration with weight loss. 5. History of gastroesophageal reflux disease. PLAN/DISCUSSION: While I did not hear a murmur, I did hear an occasional squeak in the pericardium. He may have a small pneumopericardium which is not evident on the CT scan. I do not hear any murmurs or rubs. Nonetheless, an echocardiogram was undertaken which was essentially normal with an ejection fraction of 65%. He was found to have some trace mitral and tricuspid insufficiency. Normal pulmonary artery pressures. I have ordered an ova and parasites with particular attention to Cyclospora which has been reported by the [facility] of [facility] as a resurgence. He does have a history of eating strawberries and fresh fruits. I did not see a stool panel ordered. I think this represents at most a viral gastroenteritis and should not need antibiotics. As far as the subcutaneous emphysema is concerned that will be passing and it really is essentially asymptomatic at this point in time.
[2020-12-20] MEDS: ONDANSETRON 4MG/2ML VIAL IV PRN (10:24)
[2020-12-20 12:00] VITALS: BP 100/56
[2020-12-20] MEDS ORDERED: OMEP-218 PO (13:46)
[2020-12-20] MEDS ORDERED: PROT20TA11 PO (15:06)
--- NOTE | 2020-12-20 15:52 | DS.PDOC ---
Discharge Summary General Date of Admission Dec 17, 2020 at 10:41 Date of Discharge 12/20/20 Discharge Summary PROCEDURES PERFORMED DURING STAY: [None]. ADMITTING DIAGNOSES: Pneumomediastinum/subcutaneous emphysema Nausea/vomiting GERD DISCHARGE DIAGNOSES: Pneumomediastinum/subcutaneous emphysema Nausea/vomiting GERD COMPLICATIONS/CHIEF COMPLAINT: Chest Wall Pain, Pneumomediastinum. HISTORY OF PRESENT ILLNESS: Patient is 20 years old male with past medical history of GERD, anxiety presented to the hospital with abdominal pain. Patient was found to have pneumomediastinum with subcutaneous emphysema. HOSPITAL COURSE: During her hospital stay the following issues addressed Pneumomediastinum/subcutaneous emphysema There was concern for Boerhaave syndrome, especially microperforation given history of multiple episodes of vomiting and CT presentation of subcutaneous emphysema in the neck contiguous with a pneumomediastinum Dr. Lassiter recommended oesophagogram with Gastrografin contrast without barium for further evaluation. It was done today and it was negative for perforation Patient received Zosyn IV, Strict n.p.o, and IV fluid, PPI IV Nausea/vomiting Zofran IV GERD PPI IV DISCHARGE MEDICATIONS: Please see below. ALLERGIES: Please see below. PHYSICAL EXAMINATION ON DISCHARGE: VITAL SIGNS: Please see below. GENERAL APPEARANCE: NAD HEENT: no scleral icterus, no JVD, EOMI, no crepitus on palpation of the neck area CARDIOVASCULAR: S1S2 LUNGS: CTA ABDOMEN: Tenderness over epigastric area, no rigidity, no rebound MUSCULOSKELETAL: no cyanosis, no swelling INTEGUMENT: no generalized pallor NEUROLOGICAL: cranial nerve function from 2-12 intact intact, follows commands, speech not dysarthric LABORATORY DATA: Please see below. IMAGING: [facility] NAME: OFELIA MONTENEGRO JR DATE OF : 2000 BUSINESS NUMBER: [id number] AGE: 20 SEX: M REPORT #: [id number] ROOM: ED TECHNOLOGIST: [id number] DOCTOR: VIRGIL GOMEZ PA-C Ordered for Date&Time: 12/17/201642 cc: [~ rep ct ivnm] Service Date&Time: 12/17/20 164 This report is in Signed status. Interpretation performed by [facility]. Thank you for having your radiology procedures performed at [facility] RADIOLOGY REPORT Date&Time printed: [~ rep prt dt last] [~ rep prt tm last] Page 2 of [address] [address] RADIOLOGY REPORT This report is in Signed status. Interpretation performed by [facility]. Thank you for having your radiology procedures performed at [facility] RADIOLOGY REPORT Date&Time printed: [~ rep prt dt last] [~ rep prt tm last] Page 1 of 2 THIS REPORT CONTAINS FINDINGS THAT MAY BE CRITICAL TO PATIENT CARE. The findings were verbally communicated via telephone conference with VIRGIL GOMEZ at 6:56 PM EDT on 12/17/2020. The findings were acknowledged and understood. Electronically signed by: Sheila Foster On 12/17/2020 18:56:47 PM DD: SHEILA FOSTER MD 12/17/20 1649 DT: DAVE 12/17/201855 DS: NOHELIA 12/17/201855 PROCEDURE INFORMATION: Exam: CTA Chest With Contrast Exam date and time: 12/17/2020 4:49 PM Age: 20 years old Clinical indication: Other: Epigastric pain, new murmur TECHNIQUE: Imaging protocol: Computed tomographic angiography of the chest with contrast. 3D rendering (Not supervised by radiologist): MIP and/or 3D reconstructed images were created by the technologist. Radiation optimization: All CT scans at this facility use at least one of these dose optimization techniques: automated exposure control; mA and/or kV adjustment per patient size (includes targeted exams where dose is matched to clinical indication); or iterative reconstruction. Contrast material: ISOVUE 370; Contrast volume: 75 ml; Contrast route: INTRAVENOUS (IV); COMPARISON: CR Abdomen,Flat Upright,PA CHEST 12/17/2020 12:52 PM FINDINGS: Pulmonary arteries: Normal. No pulmonary emboli. Aorta: Unremarkable. No aortic aneurysm. No aortic dissection. Great vessels off aortic arch: Subcutaneous emphysema noted in the soft tissues of the middle mediastinum extending into the neck anterior to the trachea and surrounding the right common carotid and internal jugular vessels. Lungs: Unremarkable. No consolidation. No masses. Pleural spaces: Unremarkable. No pneumothorax. No pleural effusion. Heart: Unremarkable. No cardiomegaly. No pericardial effusion. Lymph nodes: Unremarkable. No enlarged lymph nodes. Bones/joints: Unremarkable. No acute fracture. Soft tissues: Unremarkable. IMPRESSION: 1. Subcutaneous emphysema in the neck contiguous with a pneumomediastinum Electronically signed by: Sheila Foster On 12/17/2020 18:29:07 PM DD: SHEILA FOSTER MD 12/17/201648 DT: DAVE 12/17/201828 DS: NOHELIA 12/17/201828 [~ rep ct labl] PROGNOSIS: Good ACTIVITY: [As tolerated]. DIET: Full liquid diet for 2 days DISPOSITION: 01 Home, Self-Care. ITEMS TO FOLLOWUP ON ON OUTPATIENT: Follow-up with PCP DISCHARGE CONDITION: [Stable]. TIME SPENT ON DISCHARGE: 40minutes. Vital Signs/I&Os Vital Signs Date Time Temp Pulse Resp B/P (MAP) Pulse Ox O2 Delivery O2 Flow Rate FiO2 12/20/20 12:00 97.4 68 16 100/56 (71) 99 Room Air 12/20/20 08:00 2.0 I&O- Last 24 Hours up to 6 AM 12/20/20 06:00 Intake Total 1460 ml Output Total 2500 ml Balance -1040 ml Laboratory Data Labs 24H Laboratory Tests 2 12/20/20 05:15: Immature Granulocyte % (Auto) 0.2, Neutrophils (%) (Auto) 56.4, Lymphocytes (%) (Auto) 33.0, Monocytes (%) (Auto) 8.2H, Eosinophils (%) (Auto) 1.7, Basophils (%) (Auto) 0.5, Neutrophils # (Auto) 3.6, Lymphocytes # (Auto) 2.1, Monocytes # (Auto) 0.5, Eosinophils # (Auto) 0.1, Basophils # (Auto) 0.0, Nucleated Red Blood Cells % (auto) 0.0, Anion Gap 4L, Glomerular Filtration Rate > 60.0, Calcium Level 9.0, Magnesium Level 2.2, Total Bilirubin 1.1H, Aspartate Amino Transf (AST/SGOT) 8, Alanine Aminotransferase (ALT/SGPT) 14, Alkaline Phosphatase 74, Total Protein 7.0, Albumin 3.9, Albumin/Globulin Ratio 1.3 CBC/BMP Laboratory Tests 12/20/20 05:15 Microbiology Microbiology 12/17/20 Respiratory Virus Panel (PCR) ([facility]) - Final, Complete Discharge Medications Scheduled Pantoprazole Sodium (Protonix) 20 Mg Tablet.dr, 20 MG PO DAILY Allergies Coded Allergies: famotidine (Verified Adverse Reaction, Mild, N/V, 12/16/20) omeprazole (Verified Adverse Reaction, Mild, N/V, 12/16/20) FLAQUITA RILEY DO Dec 20, 2020 15:52
--- NOTE | 2020-12-20 17:31 | REP ---
INDICATION: Esophageal microperforation. COMPARISON: None. TECHNIQUE: This procedure was performed under the direct supervision of Dr. Maxwell. Images were reviewed with Dr. Maxwell. A 50/50 solution of Gastrografin and water was administered. 0.5 minutes of fluoro time was utilized for this procedure. FINDINGS: A single view PA chest x-ray is submitted as a platform software engineer film. The superior mediastinal structures are midline. The heart size is within normal limits. The lungs are clear. The exam is limited as the patient was able to drink in the upright position. However, the patient was only able to take 1 drink in the prone oblique position. The then vomited. He declined to drink anymore the contrast. The oral and pharyngeal stages of deglutition are unremarkable. Esophageal transport is prompt and efficient and there is no esophagitis stricture mucosal ring or hiatal hernia. Gastroesophageal reflux is not demonstrated on this examination. There is no evidence of extravasation. IMPRESSION: Limited study as the patient vomited and was unable to drink anymore the contrast. There is no evidence of extravasation. <Electronically signed by Tevin Oliver > 12/20/20 1538 <Electronically signed by Silviano Maxwell > 12/20/20 [id number]
== END 2020-12-20 15:19 | disposition home or self-care (01) ==
LOC: M ED 10:40 → M ED INP 10:41 → ENRESERV 22:47 → M PCU 23:17
PROVIDERS: ADMIT Internal Medicine; ATTEND Internal Medicine
DX: J98.2 Interstitial emphysema (principal); R11.2 Nausea with vomiting, unspecified; K21.9 Gastro-esophageal reflux disease without esophagitis; F41.9 Anxiety disorder, unspecified; R10.13 Epigastric pain; E86.0 Dehydration; R63.0 Anorexia; I36.1 Nonrheumatic tricuspid (valve) insufficiency; I34.0 Nonrheumatic mitral (valve) insufficiency; R19.7 Diarrhea, unspecified; R07.89 Other chest pain; R01.1 Cardiac murmur, unspecified; Z79.899 Other long term (current) drug therapy; Z88.8 Allergy status to other drugs, medicaments and biological substances; F17.220 Nicotine dependence, chewing tobacco, uncomplicated
CPT/HCPCS: 36415; 71046; 71275; 74021; 74177; 74220; 80047; 80048; 80053; 80076; 82150; 82550; 82553; 82803; 83690; 83735; 84484; 85025; 85027; 85379; 85652; 86140; 87389; 87798; 93005; 93041; 93306; 94760; 96361; 96365; 96366; 96375; 96376; 99285; C9113; J2270; J2405; J2543; Q9963; Q9967

== ENCOUNTER → 2022-04-10 | Outpatient (CLI) | payer OTHER ==
[~2022-04-10] MED LIST changes: +OMEP-173 PO; +PROT20TA11 PO
== END ==
LOC: M OUTALCOH 09:19
PROVIDERS: ATTEND Psychiatry & Neurology Psychiatry
DX: Z13.39 Encounter for screening examination for other mental health and behavioral disorders (principal)

== ENCOUNTER 2022-04-20 11:20 | Outpatient (RCR) | payer OTHER | END 2022-05-03 | LOC: M OUTALCOH 11:20 | PROVIDERS: ATTEND Psychiatry & Neurology Psychiatry | DX: Z03.89 Encounter for observation for other suspected diseases and conditions ruled out (principal); F17.200 Nicotine dependence, unspecified, uncomplicated ==

== ENCOUNTER → 2024-03-26 | Outpatient (CLI) | payer OTHER ==
[~2024-03-26] MED LIST changes: +ONDA-282 PO; -ONDA4TAB6 PO
== END ==
LOC: M OUTALCOH 08:29
PROVIDERS: ATTEND Psychiatry & Neurology Psychiatry
DX: F10.10 Alcohol abuse, uncomplicated (principal); F12.10 Cannabis abuse, uncomplicated; F17.200 Nicotine dependence, unspecified, uncomplicated

== ENCOUNTER 2024-04-07 13:00 | Outpatient (RCR) | payer OTHER | END 2024-05-03 | LOC: M OUTALCOH 13:00 | PROVIDERS: ATTEND Psychiatry & Neurology Psychiatry | DX: Z03.89 Encounter for observation for other suspected diseases and conditions ruled out (principal); F17.200 Nicotine dependence, unspecified, uncomplicated ==

== ENCOUNTER → 2024-10-15 | Outpatient (CLI) | payer OTHER | LOC: M OUTALCOH 09:54 | PROVIDERS: ATTEND Psychiatry & Neurology Psychiatry | DX: F10.10 Alcohol abuse, uncomplicated (principal); F12.10 Cannabis abuse, uncomplicated ==